=== PATIENT | female | born 1990 | race African-American/Black ===

== ENCOUNTER 2019-06-25 10:48 | Outpatient (CLI) | payer MEDICAID ==
[2019-06-25 11:30] VITALS: BP 123/78
[2019-06-25 12:44] LABS: AMPHETAMINE SCREEN, URINE Negative (Negative); BARBITURATE SCREEN, URINE Negative (Negative); BENZODIAZEPINE SCREEN, URINE Negative (Negative); CANNABINOID SCREEN, URINE Positive (Negative); COCAINE SCREEN, URINE Negative (Negative); METHADONE SCREEN, URINE Negative (Negative); OPIATE SCREEN, URINE Negative (Negative)
[2019-06-26] MEDS ORDERED: PREN1TAB60 PO (15:51)
== END 2019-06-25 12:38 | disposition home or self-care (01) ==
LOC: LDOP 10:48
PROVIDERS: ATTEND Obstetrics & Gynecology
DX: O26.893 Other specified pregnancy related conditions, third trimester (principal); R10.9 Unspecified abdominal pain; Z3A.38 38 weeks gestation of pregnancy
CPT/HCPCS: 59025; 80307; 99211; G0463

== ENCOUNTER 2019-06-26 15:29 | Inpatient (IN) | payer MEDICAID ==
[~2019-06-26] VITALS: Ht 162.6 cm; Wt 60.9 kg
[2019-06-26 15:42] VITALS: BP 130/82
[2019-06-26] MEDS ORDERED: PREN1TAB60 PO (15:51)
[2019-06-26 16:53] LABS: AMPHETAMINE SCREEN, URINE Negative (Negative); BARBITURATE SCREEN, URINE Negative (Negative); BENZODIAZEPINE SCREEN, URINE Negative (Negative); CANNABINOID SCREEN, URINE Positive (Negative); COCAINE SCREEN, URINE Negative (Negative); METHADONE SCREEN, URINE Negative (Negative); OPIATE SCREEN, URINE Negative (Negative)
[2019-06-26] MEDS ORDERED: OXYTOCIN 30U/ 0.9% NaCL 500ML 500 ML IV ONE (17:17)
[2019-06-26] MEDS ORDERED: D5%-LACTATED RINGERS 1,000 ML IV SCH (17:17)
[2019-06-26] MEDS ORDERED: FENTANYL PF 100 MCG/2ML ONE (17:21)
[2019-06-26] MEDS ORDERED: OXYTOCIN 30U/ 0.9% NaCL 500ML 500 ML ONE (17:22)
[2019-06-26] MEDS ORDERED: MISOPROSTOL 200 MCG TABLET ONE (17:22)
[2019-06-26] MEDS ORDERED: NEWBORN KIT ONE (17:22)
[2019-06-26] MEDS ORDERED: LIDOCAINE 1%, 20ML ONE (17:22)
[2019-06-26] MEDS ORDERED: TERBUTALINE 1 MG/ML, 1ML SQ PRN (17:30)
[2019-06-26] MEDS ORDERED: PLEASE ENTER PATIENTS WEIGHT MC SCH (17:30)
[2019-06-26] MEDS ORDERED: TERBUTALINE 1 MG/ML, 1ML IVPush PRN (17:30)
[2019-06-26] MEDS ORDERED: ONDANSETRON 2MG/ML, 2ML IVPush PRN (17:30)
[2019-06-26] MEDS ORDERED: FENTANYL PF 100 MCG/2ML IV PRN (17:30)
[2019-06-26] MEDS ORDERED: FENTANYL PF 100 MCG/2ML IVPush PRN (17:30)
[2019-06-26] MEDS: LACTATED RINGERS 1,000 ML IV SCH ×2 (17:38→18:32)
[2019-06-26 17:43] LABS: BASOPHILS # (AUTO) 0.04 x10^3/uL (0-0.1); BASOPHILS % (AUTO) 0 % (0-1); EOSINOPHILS # (AUTO) 0.04 x10^3/uL (0-0.4); EOSINOPHILS % (AUTO) 1 % (1-7); LYMPHOCYTES # (AUTO) 1.17 x10^3/uL (1-3.4); LYMPHOCYTES % (AUTO) 13 % (22-44); MD NO; MEAN CORPUSCULAR HEMOGLOBIN 34.4 pg (27.0-34.8); MEAN CORPUSCULAR HGB CONC 32.8 g/dL (32.4-35.8); MEAN CORPUSCULAR VOLUME 104.9 fL (80-100); MEAN PLATELET VOLUME 10.7 fL (7.4-10.4); MONOCYTES # (AUTO) 0.55 x10^3/uL (0.2-0.8); MONOCYTES % (AUTO) 6 % (2-9); NEUTROPHILS # (AUTO) 7.12 x10^3/uL (1.8-6.8); NEUTROPHILS % (AUTO) 80 % (42-75); PLATELET COUNT 137 x10^3/uL (130-400); RED BLOOD COUNT 3.62 x10^6/uL (3.82-5.3); RED CELL DISTRIBUTION WIDTH 14.6 % (9.6-15.2)
[2019-06-26 17:51] VITALS: BP 130/82
[2019-06-26] MEDS ORDERED: FENTANYL/BUPIV./NS/PF 250 ML EPIDCONT SCH ×2 (18:18→19:23)
[2019-06-26] MEDS ORDERED: FENTANYL/BUPIV./NS/PF 250 ML EPIDCONT ONE (18:41)
[2019-06-26] MEDS ORDERED: LACTATED RINGERS 1,000 ML IV SCH (19:23)
[2019-06-26] MEDS ORDERED: NALOXONE 0.4 MG/ML, 1ML IVPush PRN (19:30)
[2019-06-26] MEDS ORDERED: EPHEDRINE 50 MG/ML, 1ML IVPush PRN (19:30)
[2019-06-26] MEDS ORDERED: LACTATED RINGERS 1,000 ML IVBOLUS PRN (19:30)
[2019-06-26] MEDS ORDERED: CALCIUM CARBONATE 500 MG TAB.CHEW PO PRN (23:30)
[2019-06-26] MEDS ORDERED: MISOPROSTOL 200 MCG TABLET PR PRN (23:30)
[2019-06-26] MEDS ORDERED: SIMETHICONE 80 MG CHEW TAB PO PRN (23:30)
[2019-06-26] MEDS ORDERED: ONDANSETRON 2MG/ML, 2ML IV PRN (23:30)
[2019-06-26] MEDS ORDERED: ACETAMINOPHEN 325 MG TABLET PO PRN (23:30)
[2019-06-26] MEDS ORDERED: OXYcodone IR 5MG TABLET PO PRN (23:30)
[2019-06-26] MEDS ORDERED: OXYcodone/APAP 5/325MG TABLET PO PRN (23:30)
[2019-06-26] MEDS ORDERED: IBUPROFEN 600 MG TABLET ONE (23:50)
[2019-06-26] MEDS: IBUPROFEN 600 MG TABLET PO PRN (23:52)
[2019-06-27] MEDS ORDERED: OXYTOCIN 30U/ 0.9% NaCL 500ML 500 ML ONE (00:35)
[2019-06-27] MEDS: OXYTOCIN 30U/ 0.9% NaCL 500ML 500 ML IV SCH ×3 (00:48→19:19)
[2019-06-27 01:10] VITALS: BP 115/76
[2019-06-27 05:15] VITALS: BP 125/82
[2019-06-27] MEDS: PRENATAL VIT/IRON/FA 1 EACH TABLET PO SCH (07:28)
[2019-06-27 07:29] VITALS: BP 113/77
[2019-06-27] MEDS: DOCUSATE 100 MG CAPSULE PO PRN ×2 (07:29→22:51)
[2019-06-27] MEDS: IBUPROFEN 600 MG TABLET PO PRN ×3 (07:29→22:51)
[2019-06-27 07:53] LABS: MEAN CORPUSCULAR HEMOGLOBIN 34.5 pg (27.0-34.8); MEAN CORPUSCULAR HGB CONC 32.7 g/dL (32.4-35.8); MEAN CORPUSCULAR VOLUME 105.7 fL (80-100); MEAN PLATELET VOLUME 10.5 fL (7.4-10.4); PLATELET COUNT 113 x10^3/uL (130-400); RED BLOOD COUNT 2.96 x10^6/uL (3.82-5.3); RED CELL DISTRIBUTION WIDTH 14.3 % (9.6-15.2)
[2019-06-27 08:08] LABS: BASOPHILS # (AUTO) 0.04 x10^3/uL (0-0.1); BASOPHILS % (AUTO) 0 % (0-1); EOSINOPHILS # (AUTO) 0.02 x10^3/uL (0-0.4); EOSINOPHILS % (AUTO) 0 % (1-7); LYMPHOCYTES # (AUTO) 1.57 x10^3/uL (1-3.4); LYMPHOCYTES % (AUTO) 9 % (22-44); MD SCAN; MONOCYTES # (AUTO) 1.08 x10^3/uL (0.2-0.8); MONOCYTES % (AUTO) 6 % (2-9); NEUTROPHILS # (AUTO) 15.41 x10^3/uL (1.8-6.8); NEUTROPHILS % (AUTO) 85 % (42-75)
[2019-06-27 13:00] VITALS: BP 111/71
[2019-06-27 16:07] VITALS: BP 120/78
[2019-06-27 20:00] VITALS: BP 111/71
[2019-06-28] MEDS: IBUPROFEN 600 MG TABLET PO PRN ×2 (05:07→10:52)
[2019-06-28] MEDS: OXYTOCIN 30U/ 0.9% NaCL 500ML 500 ML IV SCH (05:19)
[2019-06-28 08:03] VITALS: BP 111/75
[2019-06-28] MEDS: PRENATAL VIT/IRON/FA 1 EACH TABLET PO SCH (10:52)
[2019-06-28] MEDS: DOCUSATE 100 MG CAPSULE PO PRN (10:53)
[2019-06-28] MEDS ORDERED: IBUP-1222 PO (13:05)
[2019-06-28] MEDS ORDERED: DOCU-131 PO (13:05)
== END 2019-06-28 14:20 | disposition home or self-care (01) | DRG 807 ==
LOC: LDOP 15:29 → LDIP 17:32 → 2NW 06-27 00:58
PROVIDERS: ADMIT Obstetrics & Gynecology; ATTEND Obstetrics & Gynecology
PROC: 10E0XZZ Delivery of Products of Conception, External Approach (ICD-10-PCS; principal; 2019-06-26)
PROC: 0KQM0ZZ Repair Perineum Muscle, Open Approach (ICD-10-PCS; 2019-06-26)
PROC: 3E0R3BZ Introduction of Anesthetic Agent into Spinal Canal, Percutaneous Approach (ICD-10-PCS; 2019-06-26)
PROC: 00HU33Z Insertion of Infusion Device into Spinal Canal, Percutaneous Approach (ICD-10-PCS; 2019-06-26)
DX: O70.1 Second degree perineal laceration during delivery (principal); Z37.0 Single live birth; Z3A.38 38 weeks gestation of pregnancy
CPT/HCPCS: 36415; J7121; 80307; 85025; 86850; 86900; G0378; J3010; J2590; J7120